=== PATIENT | female | born 1975 | race Caucasian/White ===

== ENCOUNTER → 2016-07-12 | Outpatient (CLI) | payer OTHER ==
--- NOTE | 2016-07-12 16:27 | RAD ---
Ultrasound of the right breast 07/12/2016 Clinical history: Palpable abnormality within the upper outer quadrant of the right breast. Technique: A real-time ultrasound examination of the right breast from the 9 to 12:00 position was performed. Multiple images were obtained. Findings: Comparison is made to the patient's diagnostic mammogram performed earlier today. Dense breast parenchyma is seen throughout the upper outer quadrant of the right breast. No solid or cystic mass is seen. Impression: Negative study.
--- NOTE | 2016-07-12 16:40 | RAD ---
DATE: 07/12/2016 EXAM: DIGITAL DIAGNOSTIC BILATERAL HISTORY: Palpable abnormality within the upper outer quadrant of the right breast. COMPARISON: Mammograms of the left breast dated 02/22/2009. This study was interpreted with the benefit of Computerized Aided Detection (CAD). FINDINGS: Digital MLO and CC mammograms of both breasts were obtained and additional MLO digital mammogram of the right breast was obtained.. A radiopaque marker is placed in the right breast in the area where the patient feels a palpable abnormality. Comparison is made to mammograms of the left breast dated 02/22/2009. The breast parenchyma is extremely dense which lowers the sensitivity mammography (breast density code D). No spiculated mass is seen. No malignant appearing calcification or area of architectural distortion is noted. In the area where the patient feels a palpable abnormality within the right breast, dense breast parenchyma is seen. No definite mass is noted on mammography. IMPRESSION: BI-RADS Category 1, negative. There is no mammographic evidence of malignancy. Routine yearly screening mammography is recommended for follow-up. BI-RADS CATEGORY: 1 NEGATIVE RECOMMENDED FOLLOW-UP: 12M 12 MONTH FOLLOW-UP PQRS compliance statement: Patient information was entered into a reminder system with a target due date 07/12/2017 for the next mammogram. Mammography is a sensitive method for finding small breast cancers, but it does not detect them all and is not a substitute for careful clinical examination. A negative mammogram does not negate a clinically suspicious finding and should not result in delay in biopsying a clinically suspicious abnormality. "Our facility is accredited by the [employer] Mammography Program."
== END | disposition home or self-care (01) ==
LOC: MAMMO 14:02
PROVIDERS: ATTEND Nurse Practitioner Family
DX: N63 Unspecified lump in breast (principal)
CPT/HCPCS: 76641; G0204; 77066